=== PATIENT | female | born 1965 | race Caucasian/White ===

== ENCOUNTER → 2018-09-25 | Outpatient (CLI) | payer SELFPAY ==
[~2018-09-25] MED LIST: LOSHYD PO; LOVA40 PO; METF500 PO
== END | disposition home or self-care (01) ==
LOC: LAB EV 13:45 → LAB SHORT 13:45
DX: L02.211 Cutaneous abscess of abdominal wall (principal)
CPT/HCPCS: 87070; 87075; 87077; 87147; 87186; 87205